=== PATIENT | male | born 1975 | race American Indian/Alaskan Native ===

== ENCOUNTER 2021-06-10 17:29 | Emergency (ER) | payer OTHER ==
[2021-06-10] MEDS ORDERED: HYDROcodone/ACETAMINOPHEN 5-325 MG TAB PO ONE (18:28)
--- NOTE | 2021-06-10 18:30 | Emergency Department Report ---
HPI - General Chief Complaint: Extremity Injury, Lower Time Seen by Provider: 06/10/21 18:21 - HPI HPI: 45-year-old -Thai male presents to the emergency department with a complaint of a 3-day history of atraumatic right leg pain and swelling. Patient says that it feels like his leg is "dancing." He has pain from the bottom of the thigh down through the right ankle. He feels like the knee is swollen. This has been going on since just before work on but he denies any known injury, trauma or inciting event. The patient says that he has a previous history of an atraumatic hematoma in that right leg. Otherwise he has a past me dical history of hypertension. He has taken some ibuprofen for symptoms without any relief. ED Past Medical Hx - Past Medical History Previous Medical History?: Yes Hx Hypertension: Yes Additional medical history: JOINT INFLAMMATION - Surgical History Past Surgical History?: No - Medications Home Medications: Home Medications Medication Instructions Recorded Confirmed Last Taken Type Cyclobenzaprine [Flexeril] 10 mg PO TID PRN #12 06/10/21 Unknown Rx Ibuprofen [Motrin 800 MG tab] 800 mg PO Q8HR PRN #20 tablet 06/10/21 Unknown Rx ED Review of Systems ROS: Stated complaint: SWELLING/PAIN TO RIGHT CALF AREA Other details as noted in HPI Comment: All other systems reviewed and negative Constitutional: denies: chills, fever Eyes: denies: eye pain, vision change ENT: denies: ear pain, throat pain Respiratory: denies: cough, shortness of breath Cardiovascular: edema (Right lower extremity swelling). denies: chest pain, palpitations Gastrointestinal: denies: abdominal pain, vomiting Genitourinary: denies: dysuria, discharge Musculoskeletal: joint swelling (Right knee), arthralgia (Right knee and ankle), myalgia (Right leg) Skin: denies: rash, lesions Neurological: denies: numbness, paresthesias Physical Exam - Physical Exam Vital Signs: Vital Signs 06/10/21 18:10 Temperature 98.4 F Pulse Rate 89 Respiratory 20 Rate Blood Pressure 152/105 O2 Sat by Pulse 97 Oximetry Physical Exam: GENERAL: The patient is well-developed well-nourished. HENT: Normocephalic. Atraumatic. Patient has moist mucous membranes. EYES: Extraocular motions are intact. NECK: Supple. Trachea is midline. CHEST/LUNGS: Clear to auscultation. There is no respiratory distress noted. HEART/CARDIOVASCULAR: Regular. There is no tachycardia. There is no murmur. ABDOMEN: Abdomen is soft, nontender. Patient has normal bowel sounds. SKIN: Skin is warm and dry. NEURO: The patient is awake, alert, and oriented. The patient is cooperative. The patient has no focal neurologic deficits. Normal speech. MUSCULOSKELETAL: There is tenderness to palpation to the right anterior knee, right calf, and circumferential right ankle, but no obvious deformity. Negative anterior and posterior drawer test, and no laxity with valgus or varus stress to the affected right knee. Dorsalis pedis pulse +2/4 and capillary refill less than 2 seconds to the affected right lower extremity. There is no limitation range of motion. ED Course Vital Signs 06/10/21 18:10 Temperature 98.4 F Pulse Rate 89 Respiratory 20 Rate Blood Pressure 152/105 O2 Sat by Pulse 97 Oximetry ED Medical Decision Making - Lab Data Result diagrams: 06/10/21 18:56 06/10/21 18:56 Lab Results 06/10/21 06/10/21 06/10/21 Range/Units 18:56 18:56 18:56 WBC 14.1 H (4.5-11.0) K/mm3 RBC 6.06 H (3.65-5.03) M/mm3 Hgb 16.1 H (11.8-15.2) gm/dl Hct 49.7 H (35.5-45.6) % MCV 82 L (84-94) fl MCH 27 L (28-32) pg MCHC 32 (32-34) % RDW 15.2 (13.2-15.2) % Plt Count 492 H (140-440) K/mm3 Lymph % (Auto) 12.5 L (13.4-35.0) % [place] % (Auto) 10.6 H (0.0-7.3) % Eos % (Auto) 0.5 (0.0-4.3) % Baso % (Auto) 0.6 (0.0-1.8) % Lymph # (Auto) 1.8 (1.2-5.4) K/mm3 [place] # (Auto) 1.5 H (0.0-0.8) K/mm3 Eos # (Auto) 0.1 (0.0-0.4) K/mm3 Baso # (Auto) 0.1 (0.0-0.1) K/mm3 Seg Neutrophils % 75.8 H (40.0-70.0) % Seg Neutrophils # 10.7 H (1.8-7.7) K/mm3 PT 13.5 (12.2-14.9) Sec. INR 0.93 (0.87-1.13) APTT 30.6 (24.2-36.6) Sec. Sodium 133 L (137-145) mmol/L Potassium 4.2 (3.6-5.0) mmol/L Chloride 94.8 L (98-107) mmol/L Carbon Dioxide 23 (22-30) mmol/L Anion Gap 19 mmol/L BUN 10 (9-20) mg/dL Creatinine 0.8 (0.8-1.3) mg/dL Estimated GFR > 60 ml/min BUN/Creatinine Ratio 13 % Glucose 99 (75-100) mg/dL Calcium 9.7 (8.4-10.2) mg/dL - Radiology Data Radiology results: report reviewed EXAMINATION: Right ankle radiograph, 3 views, 06/10/2021 CLINICAL INFORMATION / INDICATION: Right ankle pain. COMPARISON: None FINDINGS: There is no evidence of acute fracture or dislocation of the right ankle. There are mild bony degenerative changes of the hindfoot. There is mild generalized soft tissue swelling. IMPRESSION: Mild soft tissue swelling of the right ankle without evidence of acute bony abnormality. EXAMINATION: Right knee radiograph, 3 views, 06/10/2021 CLINICAL INFORMATION: Ri ght knee pain COMPARISON: None. FINDINGS: There is minimal bony degenerative change of the right knee without evidence of acute fracture or subluxation. No focal soft tissue swelling is identified. IMPRESSION: 1. Mild bony degenerative change of the right knee. DUPLEX DOPPLER LOWER EXTREMITY VEINS, RIGHT INDICATION: Right lower extremity swelling. TECHNIQUE: Duplex doppler imaging was performed through the veins of the right lower extremity using venous compression and other maneuvers. CO MPARISON: None FINDINGS: Common Femoral vein: Negative. Superficial Femoral vein: Negative. Popliteal vein: Negative. Calf veins: Negative. Additional findings: None. IMPRESSION: 1. No sonographic evidence for DVT in the right lower extremity. - Medical Decision Making This patient presents to the emergency department with a 3 to 4-day history of atraumatic right leg pain and swelling. The pain is from the distal right thigh down to the ankle. He feels that the knee and ankle are swollen. It is difficult to appreciate any significant edema. He is neurovascularly intact. Negative anterior and posterior drawer test of the right knee and there is no laxity with valgus or varus stress. X-ray of the right knee shows some degenerative changes but otherwise no acute process. X-ray of the right ankle shows some soft tissue swelling but otherwise no acute process. Patient is negative for DVT on his right lower extremity venous Doppler ultrasound. Labs are mostly unremarkable. Vital signs reassuring including being afebrile. I do not have a definitive answer as to what is causing the patient discomfort in his right leg, but he does not appear to have any emergent medical or surgical condition. He will be discharged home with a referral for a local orthopedist. Critical Care Time: No Critical care attestation.: If time is entered above; I have spent that time in minutes in the direct care of this critically ill patient, excluding procedure time. ED Disposition Clinical Impression: Arthritis of knee, right, Right leg pain Hypertension Qualifiers: Hypertension type: primary hypertension Qualified Code(s): I10 - Essential (primary) hypertension Disposition: 01 HOME / SELF CARE / HOMELESS Is pt being admited?: No Condition: Stable Instructions: Osteoarthritis, Pain Without a Known Cause, Hypertension, Adult, Hypertension (ED) Additional Instructions: Please follow-up with a primary care physician in the next few days. Take your blood pressure medications. Try to stay away from foods that are high in salt and caffeinated products. Keep a blood pressure log. I am giving you a referral for a local orthopedist, Dr. Hale, to follow-up regarding your right leg pain and swelling. You have been prescribed a medication that is sedating and therefore should not be taken prior to driving, working, and responsible for children and in no way should be mixed with alcohol of any quantity. Return to the emergency department with any worsening of your symptoms, new or concerning symptoms not addressed during this current emergency department visit, or with any acute distress. Prescriptions: Cyclobenzaprine [Flexeril] 10 mg PO TID PRN #12 PRN Reason: Muscle Spasm Ibuprofen [Motrin 800 MG tab] 800 mg PO Q8HR PRN #20 tablet PRN Reason: Pain , Severe (7-10) Referrals: CHEY CISNEROS FNP [Primary Care Provider] - 3-5 Days FAROOQ HALE MD [Staff Physician] - 3-5 Days Time of Disposition: 21:46
--- NOTE | 2021-06-10 19:18 | XRay Report ---
EXAMINATION: Right ankle radiograph, 3 views, 06/10/2021 CLINICAL INFORMATION / INDICATION: Right ankle pain. COMPARISON: None FINDINGS: There is no evidence of acute fracture or dislocation of the right ankle. There are mild [place] degenerative changes of the hindfoot. There is mild generalized soft tissue swelling. IMPRESSION: Mild soft tissue swelling of the right ankle without evidence of acute bony abnormality. Signer Name: Deedee Purvis MD Signed: 06/10/2021 7:13 PM Workstation Name: [id number]
--- NOTE | 2021-06-10 19:19 | XRay Report ---
EXAMINATION: Right knee radiograph, 3 views, 06/10/2021 CLINICAL INFORMATION: Right knee pain COMPARISON: None. FINDINGS: There is minimal bony degenerative change of the right knee without evidence of acute fract ure or subluxation. No focal soft tissue swelling is identified. IMPRESSION: 1. Mild bony degenerative change of the right knee. Signer Name: Deedee Purvis MD Signed: 06/10/2021 7:14 PM Workstation Name: [id number]
[2021-06-10 19:38] LABS: Basophils # (Auto) 0.1 K/mm3 (0.0-0.1); Basophils % (Auto) 0.6 % (0.0-1.8); Eosinophils # (Auto) 0.1 K/mm3 (0.0-0.4); Eosinophils % (Auto) 0.5 % (0.0-4.3); Hematocrit 49.7 % (35.5-45.6); Hemoglobin 16.1 gm/dl (11.8-15.2); Lymphocytes # (Auto) 1.8 K/mm3 (1.2-5.4); Lymphocytes % (Auto) 12.5 % (13.4-35.0); Mean Corpuscular HGB Conc 32 % (32-34); Mean Corpuscular Volume 82 fl (84-94); Monocytes # (Auto) 1.5 K/mm3 (0.0-0.8); Monocytes % (Auto) 10.6 % (0.0-7.3); Platelet Count 492 K/mm3 (140-440); Red Blood Count 6.06 M/mm3 (3.65-5.03); Red Cell Distribution Width 15.2 % (13.2-15.2)
[2021-06-10 19:56] LABS: BUN/Creatinine Ratio 13; Blood Urea Nitrogen 10 mg/dL (9-20); Calcium 9.7 mg/dL (8.4-10.2); Hemolysis Index 8
[2021-06-10 19:58] LABS: INR 0.93 (0.87-1.13)
[2021-06-10 19:59] LABS: Partial Thromboplastin Time 30.6 Sec. (24.2-36.6)
--- NOTE | 2021-06-10 21:23 | Vascular Lab Report ---
DUPLEX DOPPLER LOWER EXTREMITY VEINS, RIGHT INDICATION: Right lower extremity swelling. TECHNIQUE: Duplex doppler imaging was performed through the veins of the right lower extremity using venous comp ression and other maneuvers. COMPARISON: None FINDINGS: Common Femoral vein: Negative. Superficial Femoral vein: Negative. Popliteal vein: Negative. Calf veins: Negative. Additional findings: None. IMPRESSION: 1. No sonographic evidence for DVT in the right lower extremity. Signer Name: Deedee Purvis MD Signed: 06/10/2021 9:19 PM Workstation Name: [id number]
[2021-06-10 22:29] VITALS: BP 158/91
== END 2021-06-10 22:00 | disposition home or self-care (01) ==
LOC: ED 17:29
DX: M17.11 Unilateral primary osteoarthritis, right knee (principal); M79.604 Pain in right leg; I10 Essential (primary) hypertension
CPT/HCPCS: 36415; 80048; 85025; 85610; 85730; 99284